=== PATIENT | male | born 1950 ===

== ENCOUNTER 2019-09-15 07:57 | Day surgery (SDC) | payer MEDICARE, BC ==
[~2019-09-15 07:57] MED LIST: Lidocaine 1% with EPINEPHrine 1:100,000 50 ML MDV ONE; Midazolam 1 MG/ML 2 ML SDV ONE; Propofol 200 MG/20 ML SDV ONE; Sodium Chloride 0.9% 10 ML ONE; Sodium Tetradecyl Sulfate 1% 20 MG/2 ML SDV ONE; fentaNYL 100 MCG/2 ML SDV ONE
[2019-09-15] MEDS ORDERED: Sodium Chloride 0.9% 1,000 ML IV SCH (08:15)
[2019-09-15] MEDS ORDERED: Propofol 200 MG/20 ML SDV ONE (09:21)
[2019-09-15] MEDS: Lidocaine 1% w/EPINEPHrine 50 ML, Sodium Bicarbonate 5 MEQ in Sodium Chloride 0.9% 950 ML INJECT SCH ×2 (09:24→09:25)
--- NOTE | 2019-09-15 15:05 | OR ---
DATE OF PROCEDURE: 09/15/2019 SURGEON: Tommie Mallory MD PROCEDURES: 1. Radiofrequency ablation of left greater saphenous vein. 2. Radiofrequency ablation of right greater saphenous vein. 3. Sclerotherapy, left, multiple. 4. Sclerotherapy, right leg, multiple. 5. Compression wrap, left leg, (99654). 6. Compression wrap, right leg, (10091). COMPLICATION: None. CALENDAR CONTROL CLERK BLOOD BANK: None. ANESTHESIA: MAC/local. PREOPERATIVE DIAGNOSES: Venous insufficiency with inflammation and pain. POSTOPERATIVE DIAGNOSES: Venous insufficiency with inflammation and pain. RISKS: Risks, benefits, alternatives, and limitations including, but not limited to infection, bleeding, and DVT formation were explained to the, who patient wished to proceed. PROCEDURE IN DETAIL: The patient was placed in the supine position. Left GSV was identified first. This was accessed using a 21-gauge needle, then exchanged for a 35,000th wire, then exchanged for a 7-Polish sheath. The RFA probe was then advanced to 3 cm from the saphenofemoral junction. Tumescent fluid was injected in a 1-cm jacket around this, verified a second and a third time. Direct even pressure was held as the RFA probe was deployed x2 proximally and distally and x1 in all other segments. The sheath and device were then removed. The right side was then performed in the same manner, same fashion, same technique, in the same sequence, and using the same equipment. The sclerotherapy was then performed of left and right legs using 0.33% sodium tetradecyl. This was always drawn back to ensure intravascular injection only and no more than 2 mL was injected in one location. There were 6 on the right and 7 on the left. A two-layer two-stage compression wrapping was then performed without abnormality in a [id number]-[id number] gradient. This was in [id number] fashion. The patient tolerated the procedure well. Tommie Mallory MD /[id number]
== END 2019-09-15 11:17 | disposition home or self-care (01) ==
LOC: JP.SDS 07:57
PROVIDERS: ATTEND Surgery
DX: I83.12 Varicose veins of left lower extremity with inflammation (principal); I83.11 Varicose veins of right lower extremity with inflammation; I10 Essential (primary) hypertension; K21.9 Gastro-esophageal reflux disease without esophagitis; Z91.040 Latex allergy status
CPT/HCPCS: 36471; 36475; J1642; J2250; J2704; J3010; J7030; J3490